=== PATIENT | male | born 1945 | race Caucasian/White ===

== ENCOUNTER 2019-03-03 11:43 | Day surgery (SDC) | payer MEDICARE ==
[~2019-03-03] VITALS: Ht 182.9 cm; Wt 96.4 kg
[2019-03-03 11:45] VITALS: BP 151/56
[2019-03-03] MEDS ORDERED: statin PO (12:09)
[2019-03-03] MEDS ORDERED: ASPI81TA46 PO (12:10)
[2019-03-03] MEDS ORDERED: [UNRECOGNIZED DRUG - OTHER] PO (12:11)
[2019-03-03] MEDS ORDERED: MULT-933 PO (12:12)
[2019-03-03] MEDS ORDERED: fentaNYL/PF 50MCG/1 ML 2ML syringe ONE (12:12)
[2019-03-03] MEDS ORDERED: ASCO500C15 PO (12:12)
[2019-03-03] MEDS ORDERED: IBUP-2264 PO (12:13)
[2019-03-03] MEDS ORDERED: LIDOcaine Viscous 15ml cup ONE (12:13)
[2019-03-03] MEDS ORDERED: MIDAZolam 5mg/5ml vial ONE (12:13)
[2019-03-03 12:30] VITALS: BP 130/67
[2019-03-03 12:40] VITALS: BP 143/83
[2019-03-03 12:50] VITALS: BP 155/85
[2019-03-03 13:00] VITALS: BP 129/62
== END 2019-03-03 13:03 | disposition home or self-care (01) ==
LOC: GI LAB 11:43
PROVIDERS: ATTEND Internal Medicine Gastroenterology
DX: K22.2 Esophageal obstruction (principal); K44.9 Diaphragmatic hernia without obstruction or gangrene; K29.70 Gastritis, unspecified, without bleeding; K31.89 Other diseases of stomach and duodenum
CPT/HCPCS: 43239; 43450; J2250; J3010; J7030; 43233; 88305; 88342; 99152; A4620

== ENCOUNTER 2020-07-30 07:11 | Day surgery (SDC) | payer MEDICARE ==
[2020-07-22 16:09] LABS: BASOPHILS % (AUTO) 0.5 % (0-1); EOSINOPHILS # (AUTO) 0.1 X10'3 (0-0.9); EOSINOPHILS % (AUTO) 0.9 % (0-6); LYMPHOCYTES # (AUTO) 4.1 X10'3 (1.1-4.8); LYMPHOCYTES % (AUTO) 48.5 % (21-51); MEAN CORPUSCULAR HEMOGLOBIN 30.7 PG (27.0-31.0); MEAN CORPUSCULAR HGB CONC 33.7 g/dL (33.0-36.5); MEAN CORPUSCULAR VOLUME 91.1 FL (78-98); MEAN PLATELET VOLUME 10.7 FL (7.4-10.4); MONOCYTES # (AUTO) 0.6 X10'3 (0-0.9); MONOCYTES % (AUTO) 6.9 % (2-12); NEUTROPHILS # (AUTO) 3.6 X10'3 (1.8-7.7); NEUTROPHILS % (AUTO) 43.2 % (42-75); PRE OP HEMATOCRIT 43.2 % (42.0-52.0); PRE OP HEMOGLOBIN 14.6 g/dL (14.0-17.9); PRE OP PLATELET COUNT 134 X10'3 (140-440); RED BLOOD COUNT 4.75 X10'6 (4.70-6.10); RED CELL DISTRIBUTION WIDTH 13.1 % (11.5-14.5)
[2020-07-22 16:23] LABS: ALBUMIN 3.9 G/DL (3.4-5.0); ALKALINE PHOSPHATASE 48 IU/L (46-116); BLOOD UREA NITROGEN 13 MG/DL (7-18); BUN/CREATININE RATIO 14.1 (5.4-32.0); CALCIUM 8.7 MG/DL (8.5-10.1); CHLORIDE 104 MMOL/L (99-107); CREATININE 0.92 MG/DL (0.60-1.10); PRE OP ALT 29 U/L (30-65); PRE OP ANION GAP 7 (8-16); PRE OP AST 23 U/L (10-37); PRE OP BILIRUB, TOTAL 0.7 MG/DL (0.0-1.0); PRE OP GLUCOSE 94 MG/DL (70-104); PRE OP POTASSIUM 4.1 MMOL/L (3.4-5.1); PRE OP SODIUM 138 MMOL/L (135-145); TOTAL CARBON DIOXIDE 26.8 MMOL/L (24-32); TOTAL PROTEIN 7.7 G/DL (6.4-8.2); eGFR 80 ML/MIN
[2020-07-22 16:42] LABS: LARGE PLATELETS FEW; PLATELET ESTIMATE DECREASED
[~2020-07-30] VITALS: Ht 182.9 cm; Wt 95.0 kg
[~2020-07-30 07:11] MED LIST: AMLO10TA PO; ASCO500C15 PO; MESSAGE TO NURSING PO ONE; MULT-933 PO; cefazolin/dext.iso 2gm/50ml 50 ML IV ONE; famotidine 20mg tablet PO ONE; ringers solution, lacted 1,000 ML IV SCH; statin PO
[2020-07-30] MEDS ORDERED: LIDOcaine 1% 30ml preserv. free vial ONE (07:14)
[2020-07-30] MEDS ORDERED: morphine 4 MG/ML inj SYRINge IV PRN (07:20)
[2020-07-30] MEDS ORDERED: proCHLORperazine 10 MG/2 ml inj IV PRN (07:20)
[2020-07-30] MEDS ORDERED: morphine 2 MG/ML inj. syringe IV PRN (07:20)
[2020-07-30] MEDS ORDERED: ringers solution, lacted 1,000 ML IV SCH (07:20)
[2020-07-30] MEDS ORDERED: ondansetron/PF 4mg/2ml inj IV PRN (07:20)
[2020-07-30] MEDS ORDERED: meperidine/PF 25mg/ml syringe IV PRN ×3 (07:20)
[2020-07-30 08:56] VITALS: BP 141/83
[2020-07-30] MEDS ORDERED: BUPIVAcaine/PF 2.5 mg/ml (0.25%) 30ml vial ONE (10:09)
[2020-07-30] MEDS ORDERED: midazolam 2 mg/2 ml injection ONE (10:33)
[2020-07-30] MEDS ORDERED: fentaNYL/PF 50MCG/1 ML 2ML syringe ONE (10:33)
[2020-07-30] MEDS ORDERED: BUPIVAcaine/PF 2.5mg/ml (0.25%) 10ml vial IJ ONE (10:47)
[2020-07-30] MEDS ORDERED: ketorolac trometh. 30mg/ml inj. ONE (10:54)
[2020-07-30 10:57] VITALS: BP 144/81
--- NOTE | 2020-07-30 10:57 | NUR ---
Received from OR via [facility] , accompanied by Anesthesiologist SALVADOR and report given by Anesthesiolgist. PATIENT WITH DRESSING TO LEFT WRIST IS CDI. DENIES PAIN. VSS Addendum: 07/30/20 at 1105 by Jero Viveros RN, RN Amended: Links added.
[2020-07-30 11:07] VITALS: BP 131/80
--- NOTE | 2020-07-30 11:17 | NUR ---
PATIENT AND FAMILY AND THEY HAVE VERBALIZED UNDERSTANDING, OPPORTUNITY TO ASK QUESTIONS GIVEN AND PATIENT COMFORTABLE WITH DC. IV TAKEN OUT WITHOUT COMPLICATION. PATIENT HAS MET ALL DC CRITERIA FOR DC HOME. I HAVE REVIEWED D/C INSTRUCTIONS WITH OUT VIA WHEELCHAIR WHERE PATIENT WAS TAKEN HOME WITH ALL BELONGINGS. FAMILY GAVE PATIENT TRANSPORT HOME. Addendum: 07/30/20 at 1122 by Jero Viveros RN, RN Amended: Links added.
== END 2020-07-30 11:17 | disposition home or self-care (01) ==
LOC: PAS 07:11
PROVIDERS: ATTEND Orthopaedic Surgery Hand Surgery
DX: G56.02 Carpal tunnel syndrome, left upper limb (principal); E78.00 Pure hypercholesterolemia, unspecified; I10 Essential (primary) hypertension; Z72.89 Other problems related to lifestyle; Z20.828 Contact with and (suspected) exposure to other viral communicable diseases; Z98.890 Other specified postprocedural states
CPT/HCPCS: 36415; 64721; 80053; 82948; 85025; 87635; 93005; J1885; J2001; J2250; J3010; J3490; 85008; A4215; A4615; J7120

== ENCOUNTER 2020-11-01 06:26 | Day surgery (SDC) | payer MEDICARE ==
[2020-10-25 16:49] LABS: EOSINOPHILS # (AUTO) 0.1 X10'3 (0-0.9); MEAN CORPUSCULAR HEMOGLOBIN 30.9 PG (27.0-31.0); MONOCYTES # (AUTO) 0.7 X10'3 (0-0.9); NEUTROPHILS # (AUTO) 3.3 X10'3 (1.8-7.7)
[2020-10-25 16:52] LABS: BASOPHILS % (AUTO) 0.5 % (0-1); EOSINOPHILS % (AUTO) 1.3 % (0-6); LYMPHOCYTES # (AUTO) 4.8 X10'3 (1.1-4.8); LYMPHOCYTES % (AUTO) 53.4 % (21-51); MEAN CORPUSCULAR HGB CONC 34.3 g/dL (33.0-36.5); MEAN CORPUSCULAR VOLUME 90.1 FL (78-98); MEAN PLATELET VOLUME 10.5 FL (7.4-10.4); MONOCYTES % (AUTO) 7.9 % (2-12); NEUTROPHILS % (AUTO) 36.9 % (42-75); PRE OP HEMOGLOBIN 14.4 g/dL (14.0-17.9); PRE OP PLATELET COUNT 149 X10'3 (140-440); RED BLOOD COUNT 4.66 X10'6 (4.70-6.10); RED CELL DISTRIBUTION WIDTH 12.8 % (11.5-14.5)
[2020-10-25 17:07] LABS: ALBUMIN/GLOBULIN RATIO 1.1 (1.1-1.5); ALKALINE PHOSPHATASE 63 IU/L (46-116); BLOOD UREA NITROGEN 15 MG/DL (7-18); BUN/CREATININE RATIO 18.3 (5.4-32.0); CALCIUM 8.9 MG/DL (8.5-10.1); CHLORIDE 105 MMOL/L (99-107); CREATININE 0.82 MG/DL (0.60-1.10); PRE OP ALT 29 U/L (30-65); PRE OP ANION GAP 9 (8-16); PRE OP AST 24 U/L (10-37); PRE OP BILIRUB, TOTAL 0.9 MG/DL (0.0-1.0); PRE OP GLUCOSE 90 MG/DL (70-104); PRE OP SODIUM 142 MMOL/L (135-145); TOTAL CARBON DIOXIDE 27.7 MMOL/L (24-32); TOTAL PROTEIN 7.8 G/DL (6.4-8.2); eGFR > 90 ML/MIN
[2020-10-25 18:14] LABS: PLATELET ESTIMATE NORMAL; SMUDGE CELLS 2+; TOTAL CELLS COUNTED 100
[~2020-11-01] VITALS: Ht 182.9 cm; Wt 90.9 kg
[2020-11-01] VITALS (7 sets, daily range): BP systolic 115–136; BP diastolic 68–89
[~2020-11-01 06:26] MED LIST changes: -ASCO500C15 PO; +ASCO500C18 PO; +IRBE300T18 PO; -MESSAGE TO NURSING PO ONE; +PRAV40TA3 PO; +ceFAZolin 2gm in dextrose, iso 50 ML IV ONE; -cefazolin/dext.iso 2gm/50ml 50 ML IV ONE; -statin PO
[2020-11-01] MEDS ORDERED: BUPIVAcaine/PF 2.5mg/ml (0.25%) 10ml vial ONE (06:49)
[2020-11-01] MEDS ORDERED: LIDOcaine 0.5% (5mg/ml) 50ml vial ONE (07:27)
[2020-11-01] MEDS ORDERED: ondansetron/PF 4mg/2ml inj IV PRN (07:40)
[2020-11-01] MEDS ORDERED: morphine 2 MG/ML inj. syringe IV PRN (07:40)
[2020-11-01] MEDS ORDERED: proCHLORperazine 10 MG/2 ml inj IV PRN (07:40)
[2020-11-01] MEDS ORDERED: morphine 4 MG/ML inj SYRINge IV PRN (07:40)
[2020-11-01] MEDS ORDERED: meperidine/PF 25mg/ml syringe IV PRN ×3 (07:40)
[2020-11-01] MEDS ORDERED: ringers solution, lacted 1,000 ML IV SCH (07:40)
[2020-11-01] MEDS ORDERED: fentaNYL/PF 50MCG/1 ML 2ML syringe ONE (09:41)
[2020-11-01] MEDS ORDERED: midazolam 2 mg/2 ml injection ONE (09:42)
--- NOTE | 2020-11-01 10:05 | NUR ---
Received from OR via BED, accompanied by Anesthesiologist DR CONRAD and report given by Anesthesiolgist. PATIENT A&OX4, DENIES PAIN, V/S WNL, NEUROVASCULAR CHECKS INTACT, 20G PIV LUE, SCD ON, DRESSING TO RIGHT WRIST CDI ELEVATED WITH ICEBAG APPLIED.
--- NOTE | 2020-11-01 10:22 | NUR ---
CALLED DR COVINGTON, LEFT A MESSAGE ABOUT PT'S ABNORMAL CBC. UNABLE TO CONTACT A PERSON OR GET TO A LINK WITH A FAX NUMBER. SO CALLED SECOND TIME AND EXPLAINED OUR ANESTHESIOLOGIST WANTED US TO FAX IT, SINCE I WAS UNABLE TO, I A ASKED THEM TO GET THE RESULTS FROM [facility] , AND EXPLAINED IT'S AN ABNORMAL PATHOLOGY, LINKED TO CLL
--- NOTE | 2020-11-01 10:45 | NUR ---
PATIENT A&OX4, DENIES PAIN, V/S WNL, NEUROVASCULAR CHECKS INTACT, 20G PIV LUE D/C, SCD OFF, DRESSING TO RIGHT WRIST CDI ELEVATED WITH ICEBAG APPLIED. I HAVE REVIEWED D/C INSTRUCTIONS WITH PATIENT AND FAMILY AND THEY HAVE VERBALIZED UNDERSTANDING. PATIENT D/C HOME WITH ALL BELONGINGS AND FAMILY GAVE TRANSPORT HOME.
== END 2020-11-01 10:45 | disposition home or self-care (01) ==
LOC: PAS 06:26
PROVIDERS: ATTEND Orthopaedic Surgery Hand Surgery
DX: G56.01 Carpal tunnel syndrome, right upper limb (principal); I10 Essential (primary) hypertension; Z79.899 Other long term (current) drug therapy; Z98.890 Other specified postprocedural states; Z20.828 Contact with and (suspected) exposure to other viral communicable diseases; Z72.89 Other problems related to lifestyle
CPT/HCPCS: 36415; 64721; 80053; 82948; 85025; 87635; J2001; J2250; J3010; J3490; 85007; A4215; J7120